=== PATIENT | male | born 1975 | race Caucasian/White ===

== ENCOUNTER 2017-08-24 13:46 | Emergency (ER) | payer MEDICAID ==
[2017-08-24] MEDS ORDERED: DEXAMETHASONE 10 MG/ML VIAL PO STA (15:28)
[2017-08-24] MEDS ORDERED: KETOROLAC 60 MG/2 ML VIAL IM STA (15:28)
--- NOTE | 2017-08-24 15:39 | ED Physician Documentation ---
PD HPI LOWER EXT INJURY - Stated complaint Stated Complaint: LEFT HIP PX - Chief complaint Chief Complaint: Ext Problem - History obtained from History obtained from: Patient - History of Present Illness PD HPI LOW EXT INJURY LOCATION: Left, Hip Type of injury: Other (overuse at work) Where injury occurred: Work Timing - onset: Yesterday Timing - duration: Hours Timing - details: Gradual onset, Still present Improved by: Rest, Immobilization Worsened by: Moving, Palpating Associated symptoms: No: Weakness, Numbness, Tingling Contributing factors: No: Anticoagulated Similar symptoms before: Has not had sx before Recently seen: Not recently seen - Additional information Additional information: 41-year-old male with no particular past medical history works as a pastry chef. He was working last night when he began to experience some pain in his left hip. He points to the trochanter and moves his hand down the lateral aspect of his thigh to indicate where the pain is. He has been unable to be comfortable with positioning and he has pain with any movement of the leg.He was able to ambulate into the department. Review of Systems Constitutional: denies: Fever Eyes: denies: Decreased vision Ears: denies: Ear pain Nose: denies: Congestion Throat: denies: Sore throat Cardiac: denies: Chest pain / pressure Respiratory: denies: Dyspnea, Cough GI: denies: Abdominal Pain, Nausea, Vomiting : denies: Dysuria Skin: denies: Rash Musculoskeletal: reports: Extremity pain, Pain with weight bearing. denies: Neck pain, Back pain, Extremity swelling Neurologic: denies: Generalized weakness, Focal weakness, Numbness PD PAST MEDICAL HISTORY - Past Medical History Past Medical History: Yes Psych: Anxiety - Past Surgical History Past Surgical History: No - Present Medications Home Medications: Ambulatory Orders Medication Instructions Recorded Confirmed Citalopram [CeleXA] 40 mg ORAL DAILY 08/24/17 08/24/17 HYDROcod/ACETAM 5/325 [[place] 5/325] 1 - 2 ea PO Q6H PRN #15 tablet 08/24/17 - Allergies Allergies/Adverse Reactions: Allergies Allergy/AdvReac Type Severity Reaction Status Date / Time Penicillins Allergy Unknown Verified 08/24/17 13:51 - Social History Does the pt smoke?: No Smoking Status: Never smoker Does the pt drink ETOH?: No Does the pt have substance abuse?: No - Immunizations Immunizations are current?: Yes - POLST Patient has POLST: No PD ED PE NORMAL - Vitals Vital signs reviewed: Yes - General General: No acute distress, Well developed/nourished - HEENT HEENT: Atraumatic, PERRL, EOMI - Neck Neck: Supple, no meningeal sign - Respiratory Respiratory: No respiratory distress - Back Back: No CVA TTP, No spinal TTP - Derm Derm: Normal color, No rash - Extremities Extremities: No deformity, No edema, Other (There is no specific point tenderness to the trochanter. 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, No motor deficit, No sensory deficit, Normal speech Eye Opening: Spontaneous Motor: Obeys Commands Verbal: Oriented GCS Score: 15 - Psych Psych: Normal mood, Normal affect Results - Vitals Vitals: Vital Signs - 24 hr 08/24/17 13:49 Temperature 36.9 C Heart Rate 80 Respiratory 18 Rate Blood Pressure 156/88 H O2 Saturation 98 Oxygen O2 Source Room air - Rads (name of study) hip left Radiology: Prelim report reviewed (Impression: Negative left hip.), EMP read indepedently, See rad report PD MEDICAL DECISION MAKING - ED course Complexity details: reviewed old records, reviewed results, re-evaluated patient , considered differential, d/w patient ED course: 41-year-old male with pain in the left trochanter area appears to have developed pain in the lateral hip related to movement consistent with trochanteric bursitis. Departure - Departure Disposition: 01 Home, Self Care Clinical Impression: Bursitis Qualifiers: Bursitis location: hip Hip bursitis location: trochanteric bursitis Laterality : left Qualified Code(s): M70.62 - Trochanteric bursitis, left hip Instructions: ED Bursitis Follow-Up: [facility] [Provider Group] Prescriptions: HYDROcod/ACETAM 5/325 [[place] 5/325] 1 - 2 ea PO Q6H PRN #15 tablet PRN Reason: Pain Forms: Activity restrictions
--- NOTE | 2017-08-24 16:05 | XRAY Report ---
EXAM: LEFT HIP AND PELVIS RADIOGRAPHY EXAM DATE: 08/24/2017 03:53 PM. HISTORY: Left hip pain. COMPARISONS: None. TECHNIQUE: 1 view of the pelvis and 1 view of the hip. FINDINGS: Bones: Normal. No fracture or bone lesion. Joints: The bilateral hip, pubis symphysis, and sacroiliac joints are preserved. Soft Tissues: Normal. No soft tissue swelling. IMPRESSION: Negative left hip RADIA Referring Provider Line: [phone] SITE ID: [id number]
[2017-08-24 16:44] VITALS: BP 146/81
== END 2017-08-24 16:44 | disposition home or self-care (01) ==
LOC: ED 13:46
DX: M70.62 Trochanteric bursitis, left hip (principal); Y93.G3 Activity, cooking and baking
CPT/HCPCS: 96372; 99283

== ENCOUNTER 2019-02-02 08:00 | Outpatient (CLI) | payer MEDICAID ==
[2019-02-02 18:32] LABS: BASOPHILS # (AUTO) 0.1 10^3/uL (0.0-0.1); EOSINOPHILS # (AUTO) 0.3 10^3/uL (0.0-0.7); EOSINOPHILS % (AUTO) 3.5 %; HGB - HEMOGLOBIN 14.6 g/dL (14.0-18.0); LYMPHOCYTES # (AUTO) 2.5 10^3/uL (1.5-3.5); LYMPHOCYTES % (AUTO) 32.7 %; MEAN CORPUSCULAR HEMOGLOBIN 32.6 pg (27.0-31.0); MEAN CORPUSCULAR HGB CONC 34.3 g/dL (32.0-36.0); MEAN CORPUSCULAR VOLUME 95.1 fL (80.0-94.0); MEAN PLATELET VOLUME 8.7 fL (7.4-11.4); MONOCYTES # (AUTO) 0.6 10^3/uL (0.0-1.0); MONOCYTES % (AUTO) 7.1 %; NEUTROPHILS # (AUTO) 4.3 10^3/uL (1.5-6.6); NEUTROPHILS % (AUTO) 55.7 %; PLT - PLATELET COUNT 254 10^3/uL (130-450); RED BLOOD COUNT 4.49 10^6/uL (4.70-6.10); RED CELL DISTRIBUTION WIDTH 12.7 % (12.0-15.0); WHITE BLOOD COUNT 7.7 x10^3/uL (4.8-10.8)
[2019-02-02 19:17] LABS: ALBUMIN 3.9 g/dL (3.2-5.5); ALKALINE PHOSPHATASE 54 IU/L (42-121); ALT ALANINE AMINOTRANSFERASE 37 IU/L (10-60); AST ASPARTATE AMINOTRANSFERASE 20 IU/L (10-42); BILIRUBIN,TOTAL 0.8 mg/dL (0.2-1.0); BUN - BLOOD UREA NITROGEN 17 mg/dL (6-20); CALCIUM 9.5 mg/dL (8.5-10.3); CARBON DIOXIDE - CO2 24 mmol/L (21-32); CHLORIDE 98 mmol/L (101-111); CHOL/HDL RATIO 6.8 (<5.0); CHOLESTEROL 211 mg/dL; CREATININE 0.8 mg/dL (0.6-1.2); GFR - MDRD 106 (>89); GLUCOSE 244 mg/dL (70-100); HDL CHOLESTEROL 31 mg/dL; SODIUM 133 mmol/L (135-145); TOTAL PROTEIN 7.8 g/dL (6.7-8.2)
[2019-02-02 19:39] LABS: LDL CHOLESTEROL,DIRECT 92 mg/dL
== END 2019-02-02 08:01 | disposition home or self-care (01) ==
LOC: LAB.N 08:00
PROVIDERS: ATTEND Physician Assistant Medical
DX: Z00.00 Encounter for general adult medical examination without abnormal findings (principal); Z12.5 Encounter for screening for malignant neoplasm of prostate; Z80.42 Family history of malignant neoplasm of prostate
CPT/HCPCS: 36415; 80053; 80061; 83721; 84153; 84443; 85025

== ENCOUNTER 2019-02-05 11:25 | Outpatient (CLI) | payer MEDICAID ==
[2019-02-05 19:56] LABS: HB2 TOTAL 14.9 g/dL; HEMOGLOBIN A1C 1.18 g/dL; HEMOGLOBIN A1C % 9.4 % (4.6-6.2)
== END 2019-02-05 23:59 | disposition home or self-care (01) ==
LOC: LAB.N 11:25
PROVIDERS: ATTEND Physician Assistant Medical
DX: R73.9 Hyperglycemia, unspecified (principal)
CPT/HCPCS: 36415; 83036

== ENCOUNTER 2020-04-05 18:44 | Outpatient (CLI) | payer MEDICAID | END 2020-04-05 18:45 | disposition home or self-care (01) | LOC: COV 18:44 | PROVIDERS: ATTEND Family Medicine | DX: R50.9 Fever, unspecified (principal); M79.10 Myalgia, unspecified site; R53.83 Other fatigue; R19.7 Diarrhea, unspecified; R09.81 Nasal congestion; R11.0 Nausea; Z20.828 Contact with and (suspected) exposure to other viral communicable diseases ==

== ENCOUNTER 2020-04-12 07:00 | Outpatient (CLI) | payer MEDICAID | END 2020-04-12 23:59 | disposition home or self-care (01) | LOC: LAB.R 07:00 | PROVIDERS: ATTEND Nurse Practitioner Family | DX: B34.9 Viral infection, unspecified (principal); Z20.828 Contact with and (suspected) exposure to other viral communicable diseases ==

== ENCOUNTER 2020-12-20 08:00 | Outpatient (CLI) | payer MEDICAID ==
[2020-12-20 12:09] LABS: BASOPHILS # (AUTO) 0.1 10^3/uL (0.0-0.1); EOSINOPHILS # (AUTO) 0.3 10^3/uL (0.0-0.7); EOSINOPHILS % (AUTO) 3.6 %; HCT - HEMATOCRIT 42.3 % (42.0-52.0); HGB - HEMOGLOBIN 14.7 g/dL (14.0-18.0); LYMPHOCYTES # (AUTO) 2.9 10^3/uL (1.5-3.5); LYMPHOCYTES % (AUTO) 35.8 %; MEAN CORPUSCULAR HEMOGLOBIN 32.7 pg (27.0-31.0); MEAN CORPUSCULAR HGB CONC 34.8 g/dL (32.0-36.0); MEAN PLATELET VOLUME 10.8 fL (7.4-11.4); MONOCYTES # (AUTO) 0.6 10^3/uL (0.0-1.0); MONOCYTES % (AUTO) 7.3 %; NEUTROPHILS # (AUTO) 4.1 10^3/uL (1.5-6.6); NEUTROPHILS % (AUTO) 51.5 %; PLT - PLATELET COUNT 280 10^3/uL (130-450); RED CELL DISTRIBUTION WIDTH 12.2 % (12.0-15.0)
[2020-12-20 12:35] LABS: ALBUMIN/GLOBULIN RATIO 1.1 (1.0-2.2); ALKALINE PHOSPHATASE 47 IU/L (42-121); ALT ALANINE AMINOTRANSFERASE 46 IU/L (10-60); AST ASPARTATE AMINOTRANSFERASE 33 IU/L (10-42); BILIRUBIN,TOTAL 0.7 mg/dL (0.2-1.0); BUN - BLOOD UREA NITROGEN 17 mg/dL (6-20); CALCIUM 9.6 mg/dL (8.5-10.3); CARBON DIOXIDE - CO2 24 mmol/L (21-32); CHLORIDE 103 mmol/L (101-111); CHOL/HDL RATIO 6.9 (<5.0); CHOLESTEROL 249 mg/dL; CREATININE 0.8 mg/dL (0.6-1.2); GFR - MDRD 105 (>89); GLUCOSE 231 mg/dL (70-100); HDL CHOLESTEROL 36 mg/dL; POTASSIUM 4.3 mmol/L (3.5-5.0); SODIUM 135 mmol/L (135-145); THYROID STIMULATING HORMONE 1.41 uIU/mL (0.34-5.60); TOTAL PROTEIN 7.6 g/dL (6.7-8.2); TRIGLYCERIDES 470 mg/dL
[2020-12-20 12:46] LABS: ESTIMATED AVERAGE GLUCOSE 237 mg/dL (70-100); HEMOGLOBIN A1c% 9.9 % (4.27-6.07)
[2020-12-20 13:18] LABS: LDL CHOLESTEROL,DIRECT 121 mg/dL; LDLD/HDL RATIO 3.4 (<3.6)
== END 2020-12-20 23:59 | disposition home or self-care (01) ==
LOC: LAB.WCP 08:00
PROVIDERS: ATTEND Nurse Practitioner Family
DX: R73.9 Hyperglycemia, unspecified (principal); E78.5 Hyperlipidemia, unspecified
CPT/HCPCS: 36415; 80053; 80061; 83036; 83721; 84443; 85025

== ENCOUNTER 2022-05-29 07:11 | Outpatient (CLI) | payer MEDICAID ==
[2022-05-29 11:58] LABS: BASOPHILS # (AUTO) 0.1 10^3/uL (0.0-0.1); EOSINOPHILS # (AUTO) 0.4 10^3/uL (0.0-0.7); HCT - HEMATOCRIT 41.5 % (42.0-52.0); HGB - HEMOGLOBIN 14.4 g/dL (14.0-18.0); LYMPHOCYTES # (AUTO) 2.8 10^3/uL (1.5-3.5); LYMPHOCYTES % (AUTO) 34.6 %; MEAN CORPUSCULAR HEMOGLOBIN 33.3 pg (27.0-31.0); MEAN CORPUSCULAR HGB CONC 34.7 g/dL (32.0-36.0); MEAN CORPUSCULAR VOLUME 95.8 fL (80.0-94.0); MONOCYTES # (AUTO) 0.7 10^3/uL (0.0-1.0); MONOCYTES % (AUTO) 7.9 %; NEUTROPHILS # (AUTO) 4.1 10^3/uL (1.5-6.6); NEUTROPHILS % (AUTO) 50.6 %; PLT - PLATELET COUNT 271 10^3/uL (130-450); RED BLOOD COUNT 4.33 10^6/uL (4.70-6.10); RED CELL DISTRIBUTION WIDTH 12.2 % (12.0-15.0); WHITE BLOOD COUNT 8.2 x10^3/uL (4.8-10.8)
[2022-05-29 12:21] LABS: ALBUMIN 3.7 g/dL (3.2-5.5); ALKALINE PHOSPHATASE 47 IU/L (42-121); ALT ALANINE AMINOTRANSFERASE 42 IU/L (10-60); AST ASPARTATE AMINOTRANSFERASE 30 IU/L (10-42); BILIRUBIN,TOTAL 0.8 mg/dL (0.2-1.0); BUN - BLOOD UREA NITROGEN 15 mg/dL (6-20); CALCIUM 9.7 mg/dL (8.5-10.3); CARBON DIOXIDE - CO2 27 mmol/L (21-32); CHLORIDE 100 mmol/L (101-111); CHOL/HDL RATIO 6.7 (<5.0); CHOLESTEROL 228 mg/dL; CREATININE 0.7 mg/dL (0.6-1.2); GFR - MDRD 121 (>89); GLUCOSE 170 mg/dL (70-100); HDL CHOLESTEROL 34 mg/dL; LDL CHOLESTEROL,CALCULATED 117 mg/dL; LDL CHOLESTEROL,DIRECT 109 mg/dL; LDL/HDL RATIO 3.4 (<3.6); POTASSIUM 4.1 mmol/L (3.5-5.0); SODIUM 136 mmol/L (135-145); TOTAL PROTEIN 7.4 g/dL (6.7-8.2); TRIGLYCERIDES 383 mg/dL; VLDL CHOLESTEROL 77 mg/dL
[2022-05-29 12:22] LABS: ESTIMATED AVERAGE GLUCOSE 186 mg/dL (70-100); HEMOGLOBIN A1c% 8.1 % (4.27-6.07)
[2022-05-29 12:28] LABS: THYROID STIMULATING HORMONE 1.77 uIU/mL (0.34-5.60)
[2022-05-29 12:35] LABS: CREATININE,URINE 232.7 mg/dL; MICROALBUM/CREATININE RATIO,UR 278.5 ug/mg (<30.0); MICROALBUMIN,URINE 64.8 mg/dL (0-300.0)
== END 2022-05-29 07:12 | disposition home or self-care (01) ==
LOC: LAB.N 07:11
PROVIDERS: ATTEND Nurse Practitioner
DX: E11.9 Type 2 diabetes mellitus without complications (principal); E78.1 Pure hyperglyceridemia; F32.A Depression, unspecified
CPT/HCPCS: 36415; 80050; 80061; 82043; 82570; 83036; 83721

== ENCOUNTER 2023-01-16 07:09 | Outpatient (CLI) | payer MEDICAID ==
[2023-01-16 12:03] LABS: BASOPHILS # (AUTO) 0.1 10^3/uL (0.0-0.1); BASOPHILS % (AUTO) 1.2 %; EOSINOPHILS # (AUTO) 0.3 10^3/uL (0.0-0.7); EOSINOPHILS % (AUTO) 3.8 %; HCT - HEMATOCRIT 45.3 % (42.0-52.0); LYMPHOCYTES # (AUTO) 2.8 10^3/uL (1.5-3.5); LYMPHOCYTES % (AUTO) 38.3 %; MEAN CORPUSCULAR HEMOGLOBIN 32.3 pg (27.0-31.0); MEAN CORPUSCULAR HGB CONC 33.1 g/dL (32.0-36.0); MEAN CORPUSCULAR VOLUME 97.4 fL (80.0-94.0); MEAN PLATELET VOLUME 10.4 fL (7.4-11.4); MONOCYTES # (AUTO) 0.7 10^3/uL (0.0-1.0); MONOCYTES % (AUTO) 8.8 %; NEUTROPHILS # (AUTO) 3.5 10^3/uL (1.5-6.6); NEUTROPHILS % (AUTO) 47.5 %; PLT - PLATELET COUNT 271 10^3/uL (130-450); RED BLOOD COUNT 4.65 10^6/uL (4.70-6.10); WHITE BLOOD COUNT 7.4 x10^3/uL (4.8-10.8)
[2023-01-16 13:28] LABS: ALBUMIN/GLOBULIN RATIO 1.1 (1.0-2.2); ALKALINE PHOSPHATASE 43 IU/L (42-121); ALT ALANINE AMINOTRANSFERASE 29 IU/L (10-60); AST ASPARTATE AMINOTRANSFERASE 18 IU/L (10-42); BILIRUBIN,TOTAL 0.9 mg/dL (0.2-1.0); BUN - BLOOD UREA NITROGEN 17 mg/dL (6-20); CALCIUM 9.2 mg/dL (8.5-10.3); CARBON DIOXIDE - CO2 27 mmol/L (21-32); CHLORIDE 102 mmol/L (101-111); CHOL/HDL RATIO 5.6 (<5.0); CHOLESTEROL 197 mg/dL; CREATININE 0.7 mg/dL (0.6-1.2); GFR - MDRD 121 (>89); GLUCOSE 132 mg/dL (70-100); HDL CHOLESTEROL 35 mg/dL; LDL CHOLESTEROL,CALCULATED 84 mg/dL; LDL/HDL RATIO 2.4 (<3.6); POTASSIUM 4.1 mmol/L (3.5-5.0); SODIUM 136 mmol/L (135-145); TOTAL PROTEIN 7.6 g/dL (6.7-8.2); TRIGLYCERIDES 391 mg/dL; VLDL CHOLESTEROL 78 mg/dL
[2023-01-16 13:29] LABS: ESTIMATED AVERAGE GLUCOSE 151 mg/dL (70-100); HEMOGLOBIN A1c% 6.9 % (4.27-6.07)
[2023-01-16 13:44] LABS: THYROID STIMULATING HORMONE 1.09 uIU/mL (0.34-5.60)
[2023-01-16 13:55] LABS: CREATININE,URINE 96.8 mg/dL; MICROALBUM/CREATININE RATIO,UR 240.7 ug/mg (<30.0); MICROALBUMIN,URINE 23.3 mg/dL (0-300.0)
== END 2023-01-16 07:10 | disposition home or self-care (01) ==
LOC: LAB.N 07:09
PROVIDERS: ATTEND Nurse Practitioner
DX: E11.9 Type 2 diabetes mellitus without complications (principal)
CPT/HCPCS: 36415; 80050; 80061; 82043; 82570; 83036; 83721

== ENCOUNTER 2024-02-18 07:26 | Outpatient (CLI) | payer MEDICAID ==
[2024-02-18 12:10] LABS: ESTIMATED AVERAGE GLUCOSE 148 mg/dL (70-100); HEMOGLOBIN A1c% 6.8 % (4.27-6.07)
[2024-02-18 12:12] LABS: BASOPHILS # (AUTO) 0.1 10^3/uL (0.0-0.1); BASOPHILS % (AUTO) 0.9 %; EOSINOPHILS # (AUTO) 0.2 10^3/uL (0.0-0.7); EOSINOPHILS % (AUTO) 3.8 %; HCT - HEMATOCRIT 45.2 % (42.0-52.0); HGB - HEMOGLOBIN 15.3 g/dL (14.0-18.0); LYMPHOCYTES # (AUTO) 2.2 10^3/uL (1.5-3.5); MEAN CORPUSCULAR HEMOGLOBIN 33.2 pg (27.0-31.0); MEAN CORPUSCULAR HGB CONC 33.8 g/dL (32.0-36.0); MEAN PLATELET VOLUME 10.4 fL (7.4-11.4); MONOCYTES # (AUTO) 0.6 10^3/uL (0.0-1.0); MONOCYTES % (AUTO) 8.9 %; NEUTROPHILS # (AUTO) 3.2 10^3/uL (1.5-6.6); NEUTROPHILS % (AUTO) 50.8 %; PLT - PLATELET COUNT 263 10^3/uL (130-450); RED BLOOD COUNT 4.61 10^6/uL (4.70-6.10); RED CELL DISTRIBUTION WIDTH 12.9 % (12.0-15.0); WHITE BLOOD COUNT 6.4 x10^3/uL (4.8-10.8)
[2024-02-18 12:36] LABS: ALBUMIN 4.5 g/dL (3.2-5.5); ALBUMIN/GLOBULIN RATIO 1.5 (1.0-2.2); ALKALINE PHOSPHATASE 51 IU/L (42-121); ALT ALANINE AMINOTRANSFERASE 28 IU/L (10-60); AST ASPARTATE AMINOTRANSFERASE 18 IU/L (10-42); BILIRUBIN,TOTAL 0.6 mg/dL (0.2-1.0); BUN - BLOOD UREA NITROGEN 19 mg/dL (6-20); CALCIUM 10.1 mg/dL (8.5-10.3); CARBON DIOXIDE - CO2 27 mmol/L (21-32); CHLORIDE 100 mmol/L (101-111); CHOL/HDL RATIO 5.4 (<5.0); CHOLESTEROL 183 mg/dL; CREATININE 0.8 mg/dL (0.6-1.3); GFR - MDRD 103 (>89); GLUCOSE 140 mg/dL (74-104); HDL CHOLESTEROL 34 mg/dL; LDL CHOLESTEROL,CALCULATED 78 mg/dL; LDL/HDL RATIO 2.3 (<3.6); POTASSIUM 4.2 mmol/L (3.5-4.5); SODIUM 134 mmol/L (135-145); TOTAL PROTEIN 7.5 g/dL (6.4-8.9); TRIGLYCERIDES 356 mg/dL (48-352); VLDL CHOLESTEROL 71 mg/dL
[2024-02-18 12:40] LABS: CREATININE,URINE 116.1 mg/dL; MICROALBUM/CREATININE RATIO,UR 201.6 ug/mg (<30.0); MICROALBUMIN,URINE 23.4 mg/dL
== END 2024-02-18 07:27 | disposition home or self-care (01) ==
LOC: LAB.N 07:26
PROVIDERS: ATTEND Nurse Practitioner
DX: E11.9 Type 2 diabetes mellitus without complications (principal); E78.1 Pure hyperglyceridemia; E78.5 Hyperlipidemia, unspecified
CPT/HCPCS: 36415; 80053; 80061; 82043; 82570; 83036; 83721; 85025